=== PATIENT | female | born 2000 | race Caucasian/White ===

== ENCOUNTER 2023-02-26 05:17 | Emergency (ER) | payer OTHER, SELFPAY ==
[2023-02-26 05:19] VITALS: BP 140/92; PULSE 113; RESP 20; TEMP 36.2; O2SAT 98; BMI 19.8
--- NOTE | 2023-02-26 05:30 | EX.ED.DYSGE1 ---
HPI History of Present Illness Chief Complaint: Anxiety Informant: patient Narrative Narrative: 22-year-old female presenting to the emergency room with an anxiety attack. Patient states symptoms began about 5 hours ago. She states that this school year she started having anxiety reactions basically daily particularly in 1 large class. Tonight was the first night it actually happened in her home normally only happening in large gatherings. She states that she was able to fall asleep for about an hour but woke up and immediately went back to this anxious sensation. She states is not 1 particular thing that she is worried about just a gnawing feeling that something is wrong. No suicidal homicidal ideations. The patient states that she is not treated for any medical problems and has not sought prior treatment for this as its only been the school year. PFSH PFSH Medical History no medical history no medical history Allergy/AdvReac Type Severity Reaction Status Date / Time No Known Allergies Allergy Verified 02/26/23 05:18 Surgical History (Updated 02/26/23 @ 05:[address] Jett Mancuso, DO) History of eye surgery Social History Smoking Status: Light Smoker (<10/day) ROS ROS ED Constitutional Constitutional ED: Denies chills or weight loss Eyes Eyes: Denies change in vision or diplopia ENT ENT ED: Denies ear pain, rhinorrhea or sore throat Cardiovascular Cardiovascular: Denies chest pain, orthopnea, palpitations or racing heartbeat Respiratory/Chest Respiratory/Chest: Denies cough, dyspnea or orthopnea Gastrointestinal Gastrointestinal: Denies abdominal pain, diarrhea, nausea or vomiting Genitourinary Genitourinary ED: Denies dysuria, hematuria or urinary frequency Musculoskeletal Musculoskeletal: Denies arthralgias or myalgias Integumentary Denies abscess or rash Neurologic Neurologic: Denies headache(s) or weakness Psychiatric Psychiatric: Reports anxiety; Denies depression, suicidal ideation or suicidal thoughts Endocrine Endocrinology: Denies polydipsia, polyphagia or polyuria Allergic/Immunologic Allergic/Immunologic ED: Denies mouth swelling, tongue swelling or urticaria EXAM Physical Exam Const Vital Signs: 02/26/23 05:19 02/26/23 06:50 Temperature 97.1 F L Temperature Source Temporal Pulse Rate 113 H 88 Respiratory Rate 20 H 12 Blood Pressure 140/92 H 103/64 Blood Pressure Mean 108 77 Pulse Ox 98 97 Oxygen Delivery Method Room Air Room Air Positive well nourished and well developed General Appearance ED: well developed HEENT Reports normocephalic, head/scalp atraumatic and moist mucous membranes Eyes PERRL and EOMs intact bilaterally Neck no lymphadenopathy, supple and no JVD Resp normal respiratory effort and clear to auscultation bilaterally Cardio regular rate, regular rhythm and no murmurs Rate: tachycardic GI normal to inspection, nondistended, normoactive bowel sounds and non-tender Palpation: soft Back/Spine no CVA tenderness and normal ROM Extremity normal to inspection General Extremety ED: Negative for edema General Extremity: Negative for edema Neuro oriented x3 and CN's II-XII intact bilaterally Sensorium / Orientation: alert Motor Exam: strength 5/5 throughout Psych mental status grossly normal Psych Narrative: Patient appears very anxious. She is sitting with her knees drawn up. She appears slightly afraid/worried. At times almost tearful. No suicidal homicidal Mood & Affect: anxious Skin no rashes or lesions noted and no wounds MDM MDM MDM Narrative Medical decision making narrative: Patient received 50 mg of Vistaril and was observed. The patient's mother arrives and states that she is very concerned because her daughter is very healthy and never has anything wrong with her. She wants things checked. When asked specifically she request for CBC and a CMP. Informed her that do not really feel strongly that any testing is needed that this seems like general anxiety disorder and can be managed as an outpatient with follow-up. She states that her daughter had a benign eye tumor that required surgery within the past several years and that it may grow back. It is not expected to be malignant or to have systemic symptoms. When asked if there was something concerning that the mom needs checked or what specifically in the blood work she is worried about she is not sure. She wants to know if her daughter is anemic. She wants to know why she is chilled. She wants to know why she is shaking. EKG is a normal sinus rhythm. White count 8.3 with a hemoglobin of 14.2 and a platelet count of 222. BMP is normal except for chloride of 109. Liver enzyme are normal. Thyroid-stimulating hormone at 1.41. Serum test is negative my independent interpretation of the chest x-ray is normal mediastinal silhouette. No acute process. Patient is observed on the monitor and remains in a sinus rhythm with no significant ectopy. At this point I feel we have performed more than an adequate evaluation and have come to t a fairly solid conclusion that the patient has generalized anxiety disorder. She would be best to follow-up with primary care or psychiatry. I do not feel strongly we need to be writing Ativan or Xanax for daily use without another agent. I will provide her with the counseling centers number. I do feel that counseling and developing coping skills plays a significant role in the improvement of generalized anxiety disorder. Lab Data Attestation: I reviewed the patient's lab results. Labs: Laboratory Results - last 24 hr 02/26/23 02/26/23 06:32 07:20 WBC 8.3 RBC 4.55 Hgb 14.2 Hct 43.4 MCV 95.4 MCH 31.2 MCHC 32.7 RDW Std Deviation 43.5 RDW Coeff of Alonso 12.4 Plt Count 222 MPV 10.3 Immature Gran % (Auto) 0.200 Neut % (Auto) 79.1 H Lymph % (Auto) 15.9 L [place] % (Auto) 4.0 Eos % (Auto) 0.4 Baso % (Auto) 0.4 Absolute Neuts (auto) 6.6 Absolute Lymphs (auto) 1.33 Nucleated RBC % 0 Sodium 140 Potassium 3.6 Chloride 109 H Carbon Dioxide 25.0 Anion Gap 6 BUN 7 Creatinine 0.55 Estim Creat Clear Calc 126.21 Est GFR (MDRD) Af Amer 181 Est GFR (MDRD) Non-Af 150 BUN/Creatinine Ratio 12.8 Glucose 106 Calcium 9.0 Total Bilirubin 0.40 Direct Bilirubin 0.12 AST 16 ALT 25 Alkaline Phosphatase 59 Troponin I High Sens 4 Total Protein 7.5 Albumin 4.2 Globulin 3.3 TSH 1.41 Serum , Qual NEGATIVE Urine Color Straw Urine Clarity Clear Urine pH 7.0 Ur Specific [place] 1.005 Urine Protein Negative Urine Glucose (UA) Normal Urine Ketones Negative Urine Occult Blood Negative Urine Nitrite Negative Urine Bilirubin Negative Urine Urobilinogen Normal Ur Leukocyte Esterase Negative Urine RBC 0 SEEN Urine WBC 0 SEEN Ur Squamous Epith Cells 0-5 SEEN Urine Bacteria 0 SEEN Urine Mucus 0 SEEN Radiography Diagnostic Testing: Clinical Impression(s) from Imaging Studies Chest X-Ray 02/26/23 06:20 IMPRESSION: No radiographic evidence of acute cardiopulmonary disease. Electronically Signed: Chris Meadows MD at 7:08 EST , EKG Initial EKG: Attestation: I personally reviewed and interpreted this EKG as follows: Comments: Normal sinus rhythm with a ventricular rate of 99 bpm. There is no evidence of preexcitation or prolonged QT interval. Discharge Plan Triage Chief Complaint: Anxiety ED Provider: Jett Mancuso Dx/Rx/DC Orders Clinical Impression: MYLES (generalized anxiety disorder), Anxiety attack Instructions: MYLES, ED Anxiety Reaction Primary Care Provider: Care Physician,No Primary Referrals: Counseling,Center [Group of Physicians] - As soon as possible Disposition Disposition: Home, Self Care
[2023-02-26] MEDS: hydrOXYzine PAM 25 MG Capsule 50 MG PO (05:33)
--- NOTE | 2023-02-26 06:08 | ED.RN ---
mother arrived demanding to know what is going with the pt. mother demanding blood work.
--- NOTE | 2023-02-26 06:20 | RAD_ITS ---
EXAM: XR CHEST, 1 VIEW CLINICAL INDICATION: near syncope TECHNIQUE: Frontal view of the chest. COMPARISON: No relevant prior studies available. FINDINGS: LUNGS AND PLEURAL SPACES: Unremarkable. No consolidation or edema. No pneumothorax. No effusion. HEART: Unremarkable. Cardiac silhouette not enlarged. MEDIASTINUM: Central airways and mediastinal contour are unremarkable. BONES/JOINTS: Unremarkable. SOFT TISSUES: Unremarkable. RAD/Chest 1 View (Portable) IMPRESSION: No radiographic evidence of acute cardiopulmonary disease. Electronically Signed: Chris Meadows MD at 7:08 EST ,
--- NOTE | 2023-02-26 06:20 | EKG12_ITS ---
Test Reason : GENERAL Blood Pressure : / mmHG Vent. Rate : 099 BPM Atrial Rate : 099 BPM P-R Int : 148 ms QRS Dur : 086 ms QT Int : 312 ms P-R-T Axes : 024 019 -28 degrees QTc Int : 400 ms Normal sinus rhythm Nonspecific T wave abnormality Abnormal ECG Confirmed by REY MOREAU, FELICITAS ([id number]), subeditor JOHN DUVALL ([id number]) on 03/06/2023 10:32:22 AM Referred By: Confirmed By:FELICITAS LE MD
[2023-02-26 06:42] LABS: Absolute Lymphocyte Count 1.33 X10^3/uL (0.83-4.51); Absolute Neutrophil Count 6.6 X10^3/uL (2.0-7.7); Basophil# 0.03 X10^3/uL; Basophil% 0.4 % (0-1); Eosinophil# 0.03 X10^3/uL; Eosinophils% 0.4 % (0-5); Hematocrit 43.4 % (37-47); Hemoglobin 14.2 g/dL (12.0-15.0); Lymphocyte # 1.33 X10^3/ul (0.83-4.51); Lymphocyte % 15.9 % (19-41); Mean Corp Hgb Conc 32.7 g/dL (32-36); Mean Corpuscular Hgb 31.2 pg (27.0-32.0); Mean Corpuscular Volume 95.4 fL (81-99); Mean Platelet Vol. 10.3 fl (6.2-12.0); Monocyte# 0.33 X10^3/uL; NRBC Flagged by Analyzer 0 % (0-5); Neutrophil % 79.1 % (47-70); Platelet Count 222 K/mm3 (150-450); RBC Distribution Width CV 12.4 % (11.6-14.6); RBC Distribution Width SD 43.5 fl (35.1-43.9); Red Blood Count 4.55 M/mm3 (4.2-5.4); White Blood Count 8.3 K/mm3 (4.4-11.0)
[2023-02-26 06:50] VITALS: BP 103/64; PULSE 88; RESP 12; O2SAT 97
[2023-02-26 07:01] LABS: Internal QC Validated? YES +Cl - CLEAR BKGD; Pregnancy, Serum, hCG Quali. NEGATIVE Negative
[2023-02-26 07:13] LABS: AST(SGOT) 16 U/L (15-37); Alanine Aminotransfer ALT/SGPT 25 U/L (13-56); Albumin, Serum 4.2 g/dL (3.2-5.0); Alkaline Phosphatase 59 U/L (45-117); Anion Gap 6 (5-15); BUN 7 mg/dL (7-18); BUN/Creat Ratio 12.8 RATIO (10-20); Bilirubin, Direct 0.12 mg/dL (0.00-0.30); Chloride 109 mmol/L (98-107); Creatinine, Serum 0.55 mg/dL (0.55-1.02); EST Glomerular Filtration Rate 150 mL/min (>60); Est Glom Filt Rate - Afr Amer 181 mL/min (>60); Estimated Creatinine Clearance 126.21 ml/min; Globulin 3.3 g/dL (2.2-4.2); Glucose 106 mg/dL (74-106); Potassium 3.6 mmol/L (3.5-5.1); Protein, Total 7.5 g/dL (6.4-8.2); Sodium Level 140 mmol/L (136-145); Thyroid Stim Hormone (TSH) 1.41 uIU/mL (0.358-3.74); Troponin-I HS 4 pg/mL (3.0-54.0)
[2023-02-26 07:25] LABS: Bacteria 0 SEEN /hpf (None Seen); Mucous, Urine 0 SEEN /hpf (<or=2+); Red Blood Cells-Urine 0 SEEN /hpf (0-5); White Blood Cells 0 SEEN /hpf (0-5)
[2023-02-26 07:35] LABS: Color, Urine Straw (Yellow); Glucose, Dipstick Normal (Normal); Ketone-Dipstick Negative (Negative); Leukocyte Esterase-Dipstick Negative /ul (Negative); Nitrite-Dipstick Negative (Negative); Occult Blood-Urine Negative /ul (Negative); Protein-Dipstick Negative (Negative); Specific Gravity, Urine 1.005 (1.002-1.030); Urine Bilirubin Dipstick Negative (Negative); Urine Clarity Clear (Clear); Urine Urobilinogen Normal (Normal)
[2023-02-26] MEDS: LORazepam 2 MG/ML Syringe 1 MG IV (07:55)
[2023-02-26 08:08] LABS: Squamous Epithelial Cells - UA 0-5 SEEN /hpf (5-10)
[2023-02-26 08:35] VITALS: BP 128/58; PULSE 88; RESP 16; O2SAT 99
== END 2023-02-26 08:37 | disposition home or self-care (01) ==
PROVIDERS: Emergency Provider Emergency Medicine; Visit Provider Emergency Medicine
DX: F41.1 Generalized anxiety disorder (principal); F17.200 Nicotine dependence, unspecified, uncomplicated
CPT/HCPCS: 71045; 80048; 80076; 81001; 84443; 84484; 84703; 85025; 93005; 96374; 99284; A4216